=== PATIENT | female | born 1960 | race Caucasian/White ===

== ENCOUNTER 2017-01-05 06:32 | Day surgery (SDC) | payer BC, OTHER ==
[2017-01-04 10:46] VITALS: BMI 23.2
[2017-01-05 06:49] LABS: URINE APPEARANCE CLEAR; URINE BILIRUBIN NEGATIVE (NEGATIVE); URINE BLOOD NEGATIVE (NEGATIVE); URINE COLOR STRAW; URINE GLUCOSE (UA) NEGATIVE (NEGATIVE); URINE KETONE NEGATIVE (NEGATIVE); URINE NITRITE NEGATIVE (NEGATIVE); URINE PROTEIN NEGATIVE (NEGATIVE); URINE UROBILINOGEN NEGATIVE E.U./dl (0.2-1.0)
[2017-01-05 06:50] LABS: URINE LEUK ESTERASE 2+ (NEGATIVE)
[2017-01-05 06:51] LABS: URINE BACTERIA RARE /hpf (NONE SEEN); URINE RBC 2 /hpf (0-3); URINE WBC 8 /hpf (3-5)
[2017-01-05] MEDS ORDERED: BUPIVACAINE HCL/PF 0.5% (5MG/ML) 10 ML VIAL ONE (07:45)
[2017-01-05] MEDS ORDERED: MIDAZOLAM HCL 2 MG/2 ML SINGLE DOSE VIAL ONE (07:52)
[2017-01-05] MEDS ORDERED: LIDOCAINE HCL/PF 2% SDV 5ML VIAL ONE (07:52)
[2017-01-05] MEDS ORDERED: PROPOFOL 20 ML ONE (07:52)
[2017-01-05] MEDS ORDERED: ceFAZolin SODIUM 1 GM VIAL ONE (07:52)
--- NOTE | 2017-01-05 08:03 | HP ---
Satellite [facility] - Chief Complaint Chief Complaint: right hand pain - Past Medical History Allergies/Adverse Reactions: Allergies Allergy/AdvReac Type Severity Reaction Status Date / Time No Known Allergies Allergy Verified 01/05/17 07:05 - Current Medications Current Medications: Home Medications Medication Instructions Recorded Simvastatin 40 mg PO HS 01/04/17 Hydrocodone/Acetaminophen 1 each PO Q6H #40 tablet MDD 4 01/05/17 [Hydrocodon-Acetaminoph 7.5-325] Satellite Physical Exam - Physical Examination Vital Signs: Vital Signs Period Temp Pulse Resp BP Sys/Roberts Pulse Ox Last 24 Hr 97.8 F 74 18 132/78 97 General Appearance: Well Nourished, Well Developed, Alert & Oriented x3 ENT: Clear Lung: Normal air movement Heart: Regular rate & rhythm Extremities: Other (right hand- + swelling, + ttp basal jt, decr rom, nvi xrays show severe basal jt OA) Neurological: Intact, Alert, Oriented Satellite Impression/Plan - Impression/Plan Impression: right basal joint OA Operative Procedure: right basal joint arthroplasty Date to be Performed: 01/05/17
[2017-01-05] MEDS ORDERED: ceFAZolin SODIUM 1 GM VIAL IVPB ONE (08:10)
[2017-01-05] MEDS ORDERED: BUPIVACAINE HCL/PF (5 MG/ML) 30 ML VIAL IJ ONE ×2 (09:27)
[2017-01-05] MEDS ORDERED: LIDOCAINE HCL 1%, 10 MG/ML (50 mL VIAL) IJ ONE ×2 (09:27)
[2017-01-05] MEDS ORDERED: KETOROLAC TROMETHAMINE 30 MG/1 ML VIAL ONE (09:39)
--- NOTE | 2017-01-05 09:41 | OP ---
Operative Note - Note: Operative Date: 01/05/17 ([facility]) Pre-Operative Diagnosis: right basal joint OA Operation: right basal joint arthroplasty, tendon harvest Post-Operative Diagnosis: Same as Pre-op Surgeon: Gallo Weiss Hydrotherapist: Joesph Valdez Anesthesiologist/CRISIS WORKER: Catalina Ray Anesthesia: General, Local Specimens Removed: trapezium Estimated Blood Loss (mls): 0 (tourniquet) Operative Report Dictated: Yes
[2017-01-05] MEDS ORDERED: oxyCODONE HCL 5 MG TABLET PO PRN (09:48)
[2017-01-05] MEDS ORDERED: ONDANSETRON 4 MG/2 ML VIAL IVPUSH PRN (09:48)
[2017-01-05] MEDS ORDERED: ACETAMINOPHEN 1000 MG/100 ML VIAL (NON FORMULARY) IVPB PRN (09:49)
[2017-01-05] MEDS ORDERED: LACTATED RINGERS SOLUTION 1,000 ML IV SCH (10:00)
[2017-01-05] MEDS ORDERED: ACETAMINOPHEN INJECTION 100 ML IVPB ONE (10:09)
--- NOTE | 2017-01-05 10:45 | SPEC ---
DATE OF OPERATION: 01/05/2017 PREOPERATIVE DIAGNOSIS: Right basal joint arthritis. POSTOPERATIVE DIAGNOSIS: Right basal joint arthritis. PROCEDURE: Right basil joint arthroplasty. SURGEON: Sarah Reaves MD CERTIFIED VETERINARY TECHNICIAN: ELMO Singh ANESTHESIOLOGIST: Catalina Ray MD ANESTHESIA: LMA anesthesia local injection 20 mL 0.25% Marcaine and 1% lidocaine mix. DRAINS: None. COMPLICATIONS: None. SPECIMEN: Trapezium bone right wrist. BLOOD LOSS: None. BLOOD GIVEN: None. FLUID REPLACEMENT: 700 mL. This patient is a 56-year-old female with the preoperative diagnosis of severe recurrent painful right basal joint arthritis. After understanding the potential risks, complications, alternatives and benefits of surgery, versus nonsurgical treatment, the patient is electing to undergo this procedure. The patient understands that we are removing the trapezium bone. We are temporarily immobilizing the thumb metacarpal to the index metacarpal with K-wires. We are harvesting her FCR tendon as a ligament reconstruction and anchovy graft. She may have temporary permanent paresthesias. She may need physical therapy. She may still have compromised function, range of motion and strength. She understands these and other potential risks and complications were discussed, including the possibility of preoperative infection and she has elected to go forward with this procedure. PROCEDURE: Patient was brought to the operating room. Peripheral IV placed and IV sedation given. One gram of IV Ancef was given. LMA anesthesia was induced. A right upper extremity peripheral block was performed in the holding area. The right upper extremity was then prepped and draped in sterile fashion, elevated, exsanguinated with an Esmarch bandage, the tourniquet inflated to 250 mmHg. A curvilinear lazy "S" incision was marked out over the right basal joint and 2 smaller incisions over the FCR tendon towards the elbow, and a No. 15 scalpel blade was utilized to cut down through the skin. Subcutaneous hemostasis achieved with the bipolar cautery. Dissection done down through the superficial fascia, exposing the capsule of the right basal joint. This was incised longitudinally for later repair. The Weitlaner retractors were placed into the wound. I did a periosteal dissection on the base of the thumb metacarpal to expose the bone. The trapezium was exposed. A 0.062 K-wire was placed into the trapezium for C-arm fluoroscopy identification. The C-arm was brought in. I confirmed it was the trapezium. The K-wire was then used as a joystick, and circumferential dissection was done with a No. 15 scalpel blade. A 1/4-inch osteotome and mallet were then used to take the trapezium out in a piecemeal fashion, along with a rongeur. The entire trapezium was removed. The area was copiously irrigated and washed out. I did a visual inspection and checked with my finger to make sure there were no remaining pieces of bone, trapezium, or osteophyte between the 1st and 2nd metacarpal. A moist sponge was placed into the trapezial space. Next, our attention turned to harvesting the FCR tendon, which was done in the standard fashion. Two small incisions were made along the course of the FCR. A Littler scissors was utilized to do a dissection, exposing the FCR tendon, releasing it from its sheath, and doing circumferential dissection with a Deposit elevator and the Littler scissors. Mosquito clamps were placed under the FCR with the appropriate tension and identification of the tendon. Next, I used a fresh No. 15 scalpel blade to cut the FCR tendon more proximally. I then delivered it through the middle incision, removed all excess muscle tissue with a No. 15 scalpel blade, and brought it out through the distal incision. The 2 proximal stab wounds were irrigated, washed out, and closed with 4-0 undyed Vicryl in the deep dermal layer and final skin reapproximation was done with a running subcuticular 4-0 Biosyn stitch, which was then covered with Steri-Strips. The FCR tendon was then split using 2 mosquitos, pulling them in opposite directions and cutting the small joining fibers in the middle with the Littler scissors. Next, I used the appropriate-sized FCR tail and I used a 4-0 nylon stitch for mobilization. Next, I used the small oval bur and made a drill hole in the base of the thumb metacarpal in the appropriate direction, aiming toward the volar oblique ligament insertion. The area was copiously irrigated and washed out. I then used the blue shoulder suture passer, put it through the tunnel I drilled in the base of the thumb metacarpal, and fed the nylon suture that I put through the end of the FCR tendon through the suture passer and delivered it through the base of the thumb metacarpal. I then looped it under itself. I put two 0.062 K-wires across the thumb metacarpal to the index metacarpal, maintaining the trapezial space, controlling rotation and to protect the tension that would be placed on the LRTI ligament reconstruction. These K-wires were confirmed to be in excellent position with the C-arm fluoroscopy, cut, bent and green pin caps applied. Next, I put the appropriate tension on the ligament reconstruction and tied it in place to itself using 2-0 Vicryl sutures. I then did 2 sliding 4-0 nylon stitches through the remaining FCR tendons and put it down as an anchovy into the trapezial space, tying it down to each other and to the surrounding soft tissue/joint capsule. I filled the trapezial space quite nicely with the remaining FCR tendon. The area was irrigated and washed out. I then closed the capsule over the anchovy LRTI and closed it with 2-0 Vicryl sutures. Final skin reapproximation was done with 4-0 undyed Vicryl in the deep dermal layer, and the final skin reapproximation was done with a running subcuticular 4-0 Biosyn stitch. The area was then washed and dried, covered with Steri-Strips, Xeroform placed at the base of the K-wire pins. The entire area was covered with sterile 4 x 4 gauze, fluffs between the fingers, Webril. A 5-inch Orthoglass thumb spica splint was applied, wrapped with Clarice and Coban, and the tourniquet was taken down after a total tourniquet time of 70 minutes. There were no complications during the case. The patient tolerated the procedure quite well and was brought to the ambulatory recovery room in stable condition. Before the splint was applied, we injected 20 mL 0.25% Marcaine and 1% lidocaine mix around all the incisions and K-wires. We put a thumb Spica splint on with 5-inch Ortho Glass fiberglass, wrapped with Clarice and 4-inch Owen bandage. The tourniquet was taken down after total tourniquet time of 67 minutes. There were no complications during the case. The patient tolerated the procedure quite well and was brought to the ambulatory recovery room in stable condition. SARAH REAVES M.D. [id number]
[2017-01-05 11:01] VITALS: TEMP 97.8
[2017-01-05 12:36] VITALS: BP 119/57; PULSE 74
--- NOTE | 2017-01-06 13:05 | PATH ---
Surgical Pathology Report Patient Name: MARIE MARTIN [facility]. Rec. #: [id number] /Age/Gender: 1960 (Age: 56) / F Account: [id number] Location: [facility] SURGICAL Taken: 01/05/2017 Received: 01/05/2017 Reported: 01/06/2017 Physicians: Gallo Weiss M.D. Specimen(s) Received TRAPEZIUM, RIGHT Clinical History Osteoarthritis right basal joint Final Diagnosis BONE, TRAPEZIUM, RIGHT, RIGHT BASAL JOINT ARTHROPLASTY: CONSISTENT WITH OSTEOARTHRITIS. Electronically Signed Corey Ford M.D. Gross Description Received in formalin labeled "trapezium right" is a 3.5 x 2.6 x 0.6 cm aggregate of rice bone fragments. A customer service representative teller portion is submitted in one cassette, following decalcification. /01/05/201701/05/2017
== END 2017-01-05 12:30 | disposition home or self-care (01) ==
LOC: JASU-SURG 06:32
PROVIDERS: ATTEND Orthopaedic Surgery
PROC: 0LB70ZZ Excision of Right Hand Tendon, Open Approach (ICD-10-PCS; 2017-01-05)
PROC: 0RU Upper Joints, Supplement (ICD-10-PCS; principal; 2017-01-05 08:00)
DX: M13.841 Other specified arthritis, right hand (principal)
CPT/HCPCS: 81003; 81015; 88304-TC; 88311-TC; 94760